=== PATIENT | female | born 1975 | race Caucasian/White ===

== ENCOUNTER 2020-03-02 14:59 | Emergency (ER) | payer OTHER ==
[~2020-03-02] VITALS: Ht 167.6 cm; Wt 73.0 kg
[2020-03-02 15:15] VITALS: BP 5/6
[2020-03-02] MEDS ORDERED: FAMOTIDINE 20 MG/2 ML VIAL IV STA (15:23)
[2020-03-02] MEDS ORDERED: DONNATAL/LIDOCAINE/MAALOX 30 ML SUSP PO ONE (15:30)
[2020-03-02] MEDS ORDERED: MAGNESIUM/ALUMINUM/SIMETHICONE 30 ML UDC ONE (16:08)
[2020-03-02] MEDS ORDERED: LIDOCAINE VISC 2% SOLN 15 ML UDC ONE (16:08)
[2020-03-02] MEDS ORDERED: BELLADONNA ALK/PHENOBARBITAL 5 ML UDC ONE (16:08)
--- NOTE | 2020-03-02 17:49 | Emergency Department Note ---
History of Present Illnes History of Present Illness Chief Complaint: Abdominal Complaints History of Present Illness This is a 44 year old female presents with the 3 weeks of nausea and vomiting and GERD type symptoms. She states that she's had similar symptoms in the past and she was diagnosed with a hiatal hernia at the age of 14. However, her symptoms have never been this severe. She states that she only has symptoms when she tries to take something by mouth. She has not taken anything [id number] or prescription including a PPI, H2 zbigniew, or antacids. No chest pain. No SOB. Electrical Estimator Required: No Onset (how long ago): week(s) Location: epigastric Quality: burning Radiation: Reports non-radiation Onset quality: gradual Duration (how long): week(s) Progression: waxing and waning Chronicity: recurrent (recurrent episodes since the age of [age] years old) Relieving factors: none Exacerbating factors: eating Past Medical/Family History Physician Review I have reviewed the patient's past medical and family history. Any updates have been documented here. Past Medical History Recent Fever: No Clinical Suspicion of Infectio: No New/Unexplained Change in Ment: No Other Medical History: GERD, anxiety, HTN, RA Other Surgery: left foot, tubal, D&C Social History Smoking Cessation: Current every day smoker Any Illegal Drug Use: No Review of Systems Review of Systems Constitutional: Reports no symptoms EENTM: Denies no symptoms, Denies as per HPI, Denies eye pain, Denies blurred vision, Denies tearing, Denies double vision, Denies ear pain, Denies ear discha rge, Denies nose pain, Denies nose congestion, Denies throat pain, Denies throat swelling, Denies mouth pain, Denies mouth swelling, Denies other Cardiovascular: Reports no symptoms Respiratory: Reports no symptoms Gastrointestinal: Reports as per HPI Musculoskeletal: Reports no symptoms Integumentary: Reports no symptoms Neurological: Reports no symptoms Psychological: Reports no symptoms Hematological/Lymphatic: Reports no symptoms Review of other systems: All other systems negative Physical Exam Related Data Allergies: Coded Allergies: No Known Allergies (Unverified , 03/02/20) Physical Exam CONSTITUTIONAL Constitutional: Present well-developed, Present well-nourished HENT HENT L/R: Present left ext ear normal, Present right ext ear normal EYES NECK PULMONARY Pulmonary: Present effort normal, Present breath sounds normal CARDIOVASCULAR Cardiovascular: Present regular rhythm, Present heart sounds normal, Present capillary refill normal, Present normal rate GASTROINTESTINAL Abdominal: Present soft, Present nontender, Present bowel sounds normal GENITOURINARY SKIN MUSCULOSKELETAL Musculoskeletal: Present ROM normal NEUROLOGICAL Neurological: Present alert, Present oriented x 3, Present no gross motor or sensory deficits PSYCHOLOGICAL Psychological: Present mood/affect normal, Present judgement normal Results Laboratory Lab results reviewed: Yes Laboratory comments CMP was unremarkable. White blood cell count was 5.9, hemoglobin 9.8, hematocrit 31.3, platelet count 458 Assessment & Plan Medical Decision Making MDM Initial diagnosis including coronary disease, embolism dissection and GERD pneumothorax pneumonia were considered. However since the patient has had similar episodes in the past consistent with GERD and the symptoms only occurred when eating it was felt that this was GI related and a cardiac workup was not pursued. This is further confirmed when her symptoms completely resolved after a GI cocktail. The patient tolerated by mouth in the emergency room. Patient was given strict return precautions including cardiac related. Reassessment Reassessment System at 1645 the patient was asymptomatic after GI cocktail. Heart rate was 90. Assessment & Plan Final Impression: (1) GERD (gastroesophageal reflux disease) Depart Disposition: HOME, SELF-CARE Medications in the ED Famotidine 20 mg NOW STAT IV Last administered on 03/02/20at 16:08; Admin Dose 20 MG; Start 03/02/20 at 15:23; Stop 03/02/20 at 16:15; Status DC Belladonna Alkaloids/ Phenobarbital 5 ml ONCE ONCE PO Last administered on 03/02/20at 16:05; Admin Dose 5 ML; Start 03/02/20 at 15:30; Stop 03/02/20 at 15:40; Status DC Lidocaine HCl 15 ml STK-MED ONCE .ROUTE ; Start 03/02/20 at 16:08; Stop 03/02/20 at 16:02; Status DC Belladonna Alkaloids/ Phenobarbital 10 ml STK-MED ONCE .ROUTE ; Start 03/02/20 at 16:08; Stop 03/02/20 at 16:02; Status DC Magnesium Aluminum Silicate 30 ml STK-MED ONCE .ROUTE ; Start 03/02/20 at 16:08; Stop 03/02/20 at 16:02; Status DC CHRIS DIAL MD Mar 02, 2020 16:51
== END 2020-03-02 16:53 | disposition home or self-care (01) ==
LOC: FSED 15:20
DX: R10.13 Epigastric pain (principal); K21.9 Gastro-esophageal reflux disease without esophagitis; R11.2 Nausea with vomiting, unspecified; I10 Essential (primary) hypertension; M06.9 Rheumatoid arthritis, unspecified; F41.9 Anxiety disorder, unspecified; F17.210 Nicotine dependence, cigarettes, uncomplicated
CPT/HCPCS: 80053; 81003; 85025; 96374; 96376; 99283

== ENCOUNTER 2022-07-13 15:50 | Emergency (ER) | payer OTHER ==
[~2022-07-13] VITALS: Ht 167.6 cm; Wt 65.8 kg
[~2022-07-13 15:50] MED LIST: FLAGYL500 MG PO; LEVOFLOXACIN250 MG PO
[2022-07-13] MEDS ORDERED: ULTRAM 50MG50 MG PO (16:47)
[2022-07-13] MEDS ORDERED: PREDNISONE50 MG PO (16:47)
[2022-07-13] MEDS ORDERED: SULFASALAZINE500 MG PO (16:47)
[2022-07-13] MEDS ORDERED: METOPROLOL TART25 MG PO (16:47)
[2022-07-13] MEDS ORDERED: CELEBREX200 MG PO (16:47)
[2022-07-13] MEDS ORDERED: CYMBALTA30 MG (16:47)
[2022-07-13] MEDS ORDERED: SODIUM CHLORIDE 0.9% 1000ML 1,000 ML IV STA (16:48)
[2022-07-13] MEDS ORDERED: FAMOTIDINE 20 MG/2 ML VIAL IV ONE ×2 (17:00→17:07)
[2022-07-13] MEDS ORDERED: ONDANSETRON HCL INJ 2MG/ML 2ML 2 MG/ML VIAL IV ONE (17:00)
[2022-07-13] MEDS ORDERED: DIATRIZOATE MEGL/DIATRIZOA SOD 30 ML BTL PO ONE (17:06)
[2022-07-13] MEDS ORDERED: SODIUM CHLORIDE 0.9% 1000ML 1,000 ML ONE (17:07)
[2022-07-13] MEDS ORDERED: ONDANSETRON HCL INJ 2MG/ML 2ML 2 MG/ML VIAL ONE (17:07)
[2022-07-13] MEDS ORDERED: Morphine 4mg INJECTION 4 MG/ML INJ IV STA ×2 (17:20→19:05)
[2022-07-13] MEDS ORDERED: PIPERACILLIN/TAZOBACTAM 3.375 GM VIAL ONE (17:35)
[2022-07-13] MEDS ORDERED: Morphine 4mg INJECTION 4 MG/ML INJ ONE (19:45)
== END 2022-07-13 22:52 | disposition other institution (70) ==
LOC: FSED 15:57
DX: A41.9 Sepsis, unspecified organism (principal); L02.211 Cutaneous abscess of abdominal wall; D62 Acute posthemorrhagic anemia; D72.829 Elevated white blood cell count, unspecified; R10.31 Right lower quadrant pain; R11.2 Nausea with vomiting, unspecified; R00.0 Tachycardia, unspecified; I10 Essential (primary) hypertension; F41.9 Anxiety disorder, unspecified; K21.9 Gastro-esophageal reflux disease without esophagitis; M06.9 Rheumatoid arthritis, unspecified; Z20.822 Contact with and (suspected) exposure to COVID-19; Z93.3 Colostomy status
CPT/HCPCS: 71250; 74176; 80053; 81003; 83605; 85025; 87040; 96374; 96375; 99284; J2270; J2405; J2543; J7030; Q9963; U0002

== ENCOUNTER 2022-11-06 13:40 | Emergency (ER) | payer OTHER ==
[~2022-11-06] VITALS: Ht 167.6 cm; Wt 83.6 kg
[~2022-11-06 13:40] MED LIST changes: +CELEBREX200 MG PO; +CYMBALTA30 MG; +METOPROLOL TART25 MG PO; +PREDNISONE50 MG PO; +SULFASALAZINE500 MG PO; +ULTRAM 50MG50 MG PO
[2022-11-06] MEDS ORDERED: CEFEPIME 2 GM in SODIUM CHLORIDE 0.9% 100 ML IV STA (14:44)
[2022-11-06] MEDS ORDERED: Vancomycin IV 1.25 GM in SODIUM CHLORIDE 0.9% 250ML 250 ML IV STA (14:44)
[2022-11-06] MEDS ORDERED: METOPROLOL TARTRATE INJ 1 MG/ML VIAL IV STA (15:01)
[2022-11-06] MEDS ORDERED: LACTATED RINGER'S 1,000 ML IV ONE (15:15)
[2022-11-06] MEDS ORDERED: METOPROLOL TARTRATE 50 MG TAB ONE ×2 (15:20→15:49)
[2022-11-06] MEDS ORDERED: LACTATED RINGER'S 1,000 ML ONE (15:21)
[2022-11-06] MEDS ORDERED: SODIUM CHLORIDE 0.9% 250ML 250 ML ONE (15:21)
[2022-11-06] MEDS ORDERED: SODIUM CHLORIDE 0.9% 100 ML ONE (15:22)
[2022-11-06] MEDS ORDERED: Vancomycin IV 1 GM VIAL ONE (15:22)
[2022-11-06] MEDS ORDERED: CEFEPIME HCL 1 GM VIAL ONE (15:22)
[2022-11-06] MEDS ORDERED: ONDANSETRON HCL INJ 2MG/ML 2ML 2 MG/ML VIAL ONE (15:23)
[2022-11-06] MEDS ORDERED: METOPROLOL SUCCINATE 25 MG TAB XL PO ONE (15:30)
[2022-11-06] MEDS ORDERED: Morphine 4mg INJECTION 4 MG/ML INJ IV ONE (16:00)
[2022-11-06] MEDS ORDERED: SODIUM CHLORIDE 0.9% 1000ML 500 ML IV ONE (17:45)
[2022-11-06] MEDS ORDERED: SODIUM CHLORIDE 0.9% 500ML 500 ML ONE (18:22)
== END 2022-11-06 18:51 | disposition other institution (70) ==
LOC: FSED 13:47
DX: R50.9 Fever, unspecified (principal); A41.9 Sepsis, unspecified organism; J86.9 Pyothorax without fistula; Z20.822 Contact with and (suspected) exposure to COVID-19
CPT/HCPCS: 71250; 80053; 81003; 83605; 85025; 87040; 93005; 96374; 99284; J0692 ×2; J2270; J2405; J3370; J7040; J7050 ×2; J7121; U0002